=== PATIENT | female | born 1995 | race Caucasian/White ===

== ENCOUNTER 2016-04-12 12:19 | Emergency (ER) | payer BC ==
--- NOTE | 2016-04-12 13:54 | UC ---
Ear Complaint HPI - HPI Summary HPI Summary: Patient has had right ear pain since yesterday, 5 days of increased sinus pressure and pain. - History of Current Complaint Chief Complaint: UCEar Stated Complaint: EAR PAIN Time Seen by Provider: 04/12/16 13:46 Hx Obtained From: Patient Hx Last Menstrual Period: unknown ?: No Onset/Duration: Sudden Onset, Lasting Days Severity Initially: Moderate Severity Currently: Moderate Pain Intensity: 5 Pain Scale Used: 0-10 Numeric Aggravating Factors: Nothing Alleviating Factors: Nothing Associated Signs/Symptoms: Positive: URI Symptoms - Allergies/Home Medications Allergies/Adverse Reactions: Allergies Allergy/AdvReac Type Severity Reaction Status Date / Time Amoxicillin [From Augmentin] Allergy Rash Verified 04/12/16 12:55 Clavulanic Acid Allergy Rash Verified 04/12/16 12:55 [From Augmentin] Home Medications: Home Medications NK [No Home Medications Reported] 04/12/16 [History Confirmed 04/12/16] PMH/Surg Hx/FS Hx/Imm Hx Previously Healthy: Yes - Surgical History Surgical History: Yes Surgery Procedure, Year, and Place: ear tubes - Family History Known Family History: Negative: Cardiac Disease, Hypertension - Social History Alcohol Use: Weekly Substance Use Type: None Smoking Status (MU): Never Smoked Tobacco Review of Systems Constitutional: Fatigue Skin: Negative Eyes: Negative ENT: Sore Throat, Ear Ache, Nasal Discharge Respiratory: Cough Cardiovascular: Negative Gastrointestinal: Negative Genitourinary: Negative Motor: Negative Neurovascular: Negative Musculoskeletal: Negative Neurological: Negative Psychological: Negative All Other Systems Reviewed And Are Negative: Yes Physical Exam Triage Information Reviewed: Yes Appearance: Well-Nourished, Ill-Appearing, Pain Distress Vital Signs: Initial Vital Signs Temp 98.4 F 04/12/16 12:51 Pulse 67 04/12/16 12:51 Resp 16 04/12/16 12:51 BP 120/70 04/12/16 12:51 Pulse Ox 99 04/12/16 12:51 Vital Signs Reviewed: Yes Eye Exam: Normal Eyes: Positive: Conjunctiva Clear ENT: Positive: Pharyngeal erythema, Nasal congestion, Nasal drainage, Other: - bilateral cerumen impaction Dental Exam: Normal Neck exam: Normal Neck: Positive: Supple, Nontender, No Lymphadenopathy Respiratory Exam: Normal Respiratory: Positive: Chest non-tender, Lungs clear, Normal breath sounds Cardiovascular Exam: Normal Cardiovascular: Positive: RRR, No Murmur, Pulses Normal Abdominal Exam: Normal Abdomen Description: Positive: Nontender, No Organomegaly, Soft Bowel Sounds: Positive: Present Musculoskeletal Exam: Normal Musculoskeletal: Positive: Strength Intact, ROM Intact, No Edema Neurological Exam: Normal Neurological: Positive: Alert, Muscle Tone Normal Psychological Exam: Normal Skin Exam: Normal Ear Complaint Course/Dx - Course Course Of Treatment: hx obtained, exam performed, ears flushed by nurse, hearing is better, no sign of infection - Differential Dx/Diagnosis Differential Diagnosis/HQI/PQRI: Cellulitis, Cerumen Impaction, Otitis Externa, Otitis Media, URI Provider Diagnoses: serous otitis media right Discharge - Discharge Plan Condition: Stable Disposition: HOME Patient Education Materials: Serous Otitis Media (ED) Additional Instructions: Your right ear has some clear fluid behind it. I recommend getting some sudafed or claritin D and use as directed. Follow up with any worsening symtpoms. Get plenty of rest and increase your fluid intake.
== END 2016-04-12 14:49 | disposition home or self-care (01) ==
LOC: UCCORT 12:19
DX: H65.91 Unspecified nonsuppurative otitis media, right ear (principal); Z88.1 Allergy status to other antibiotic agents; Z88.0 Allergy status to penicillin
CPT/HCPCS: 99203; G0463